=== PATIENT | female | born 2000 | race Caucasian/White ===

== ENCOUNTER 2021-04-16 13:13 | Emergency (ER) | payer OTHER, MEDICAID ==
[~2021-04-16] VITALS: Ht 175.3 cm; Wt 142.4 kg
[~2021-04-16 13:13] MED LIST: ALLEGRA-D 24 H1 EACH PO; CLEOCIN HCL150 MG PO; DICLOFENAC SODI75 MG PO; ELIMITE60 GM TP; NOHOMEMEDICATIONS; PREDNISONE 20 M20 MG PO; ZPAK PO
[2021-04-16 13:17] VITALS: BP 139/96
[2021-04-16 14:14] LABS: INFLUENZA A ANTIGEN Negative (Negative); INFLUENZA B ANTIGEN Negative (Negative)
[2021-04-16] MEDS ORDERED: TESSALON PERLE100 MG PO (14:24)
[2021-04-16] MEDS ORDERED: PROAIR HFA8.5 GM INH (14:24)
[2021-04-16] MEDS ORDERED: MEDROLDOSEPACK PO (14:24)
== END 2021-04-16 14:29 | disposition home or self-care (01) ==
LOC: M.ERS 13:13
PROVIDERS: Physician Assistant
DX: J06.9 Acute upper respiratory infection, unspecified (principal); Z20.822 Contact with and (suspected) exposure to COVID-19; Z88.0 Allergy status to penicillin; Z88.5 Allergy status to narcotic agent